=== PATIENT | female | born 1970 | race Caucasian/White ===

== ENCOUNTER 2016-11-03 18:53 | Emergency (ER) | payer OTHER ==
[~2016-11-03] VITALS: Ht 154.9 cm; Wt 69.9 kg
[~2016-11-03 18:53] MED LIST: HYDR10TA2 PO
[2016-11-03 19:44] LABS: BASO # 0.1 x10^3/uL (0.0-0.2); BASO % 1 % (0-3); EOS % 2 % (0-3); HEMATOCRIT 42.4 % (36.0-47.0); HEMOGLOBIN 14.3 g/dL (12.0-15.5); LYMPH # 3.5 x10^3/uL (1.0-4.8); LYMPH % 33 % (24-48); MEAN CORPUSCULAR HEMOGLOBIN 30 pg (25-35); MEAN CORPUSCULAR HGB CONC 34 g/dL (31-37); MEAN CORPUSCULAR VOLUME 89 fL (79-100); MONO % 5 % (0-9); NEUT % 59 % (31-73); PLATELET COUNT 219 x10^3/uL (140-400); RED BLOOD COUNT 4.74 x10^6/uL (3.50-5.40); RED CELL DISTRIBUTION WIDTH 12.8 % (11.5-14.5); WHITE BLOOD COUNT 10.8 x10^3/uL (4.0-11.0)
[2016-11-03] MEDS ORDERED: IV NORMAL SALINE 1000ML BAG 1,000 ML IV ONE (19:45)
[2016-11-03] MEDS ORDERED: ONDANSETRON PF 4 MG/2 ML VIAL. IV ONE (19:45)
--- NOTE | 2016-11-03 19:53 | PHYS DOC ---
Past Medical History Past Medical History: Anxiety, Other Additional Past Medical Histor: "recovering drug and alcohol addict" Past Surgical History: Cholecystectomy, Hysterectomy, Tonsillectomy, Tubal ligation Additional Past Surgical Histo: "bladder lift", left finger Alcohol Use: None Drug Use: None Adult General Chief Complaint Chief Complaint: NAUSEA/VOMITING/DIARRHA HPI HPI 46-year-old female presents with 24-hour history of nausea and vomiting. She also states that her anxiety is very high. She denies any fever chills or sweats. She's not had any melena or hematemesis. She states that no one else is been sick. She denies any suicidal or homicidal ideation. Patient also states she's had a gradual onset of a headache throughout the day today. She thought it was related to her blood pressure but she did not check her blood pressure at home. She states she's reassured to know that her blood pressure was within normal limits during her check-in process here. [] Review of Systems Review of Systems Constitutional: Denies fever or chills [] Eyes: Denies change in visual acuity, redness, or eye pain [] HENT: Denies nasal congestion or sore throat [] Respiratory: Denies cough or shortness of breath [] Cardiovascular: No additional information not addressed in HPI [] GI: Per history of present illness [] : Denies dysuria or hematuria [] Musculoskeletal: Denies back pain or joint pain [] Integument: Denies rash or skin lesions [] Neurologic: Denies headache, focal weakness or sensory changes [] Endocrine: Denies polyuria or polydipsia [] Current Medications Current Medications Current Medications Medications (Trade) Dose Ordered Sig/Sia Start Time Stop Time Status Last Admin Dose Admin Diazepam (Valium) 5 mg 1X ONCE 11/03/16 20:00 11/03/16 20:01 DC 11/03/16 20:06 5 MG Ondansetron HCl (Zofran) 8 mg 1X ONCE 11/03/16 19:45 11/03/16 19:46 DC 11/03/16 20:06 8 MG Sodium Chloride (Iv Sodium Chloride 0.9% 1000ml Bag) 1,000 ml @ 1,000 mls/hr 1X ONCE 11/03/16 19:45 11/03/16 20:44 11/03/16 20:06 1,000 MLS/HR Allergies Allergies Allergies Coded Allergies Type Severity Reaction Last Updated Verified morphine Allergy Intermediate itching 12/08/15 Yes alprazolam Adverse Reaction Intermediate "makes me wong" 12/08/15 Yes Physical Exam Physical Exam Constitutional: Well developed, well nourished, mild distress, non-toxic appearance. [] HENT: Normocephalic, atraumatic, bilateral external ears normal, oropharynx moist, no oral exudates, nose normal. [] Eyes: PERRLA, EOMI, conjunctiva normal, no discharge. [] Neck: Normal range of motion, no tenderness, supple, no stridor. [] Cardiovascular:Heart rate regular rhythm, no murmur [] Lungs & Thorax: Bilateral breath sounds clear to auscultation [] Abdomen: Bowel sounds normal, soft, no tenderness, no masses, no pulsatile masses. [] Skin: Warm, dry, no erythema, no rash. [] Back: No tenderness, no CVA tenderness. [] Extremities: No tenderness, no cyanosis, no clubbing, ROM intact, no edema. [] Neurologic: Alert and oriented X 3, normal motor function, normal sensory function, no focal deficits noted. [] Psychologic: Extremely anxious. [] Current Patient Data Vital Signs Vital Signs Date Time Temp Pulse Resp B/P Pulse Ox O2 Delivery O2 Flow Rate FiO2 11/03/16 19:20 97.8 69 26 147/75 100 Room Air 97.8 Lab Values Laboratory Tests Test 11/03/16 19:25 White Blood Count 10.8x10^3/uL (4.0-11.0) Red Blood Count 4.74x10^6/uL (3.50-5.40) Hemoglobin 14.3g/dL (12.0-15.5) Hematocrit 42.4% (36.0-47.0) Mean Corpuscular Volume 89fL (79-100) Mean Corpuscular Hemoglobin 30pg (25-35) Mean Corpuscular Hemoglobin Concent 34g/dL (31-37) Red Cell Distribution Width 12.8% (11.5-14.5) Platelet Count 219x10^3/uL (140-400) Neutrophils (%) (Auto) 59% (31-73) Lymphocytes (%) (Auto) 33% (24-48) Monocytes (%) (Auto) 5% (0-9) Eosinophils (%) (Auto) 2% (0-3) Basophils (%) (Auto) 1% (0-3) Neutrophils # (Auto) 6.4x10^3uL (1.8-7.7) Lymphocytes # (Auto) 3.5x10^3/uL (1.0-4.8) Monocytes # (Auto) 0.6x10^3/uL (0.0-1.1) Eosinophils # (Auto) 0.3x10^3/uL (0.0-0.7) Basophils # (Auto) 0.1x10^3/uL (0.0-0.2) Sodium Level 140mmol/L (136-145) Potassium Level 3.5mmol/L (3.5-5.1) Chloride Level 102mmol/L (98-107) Carbon Dioxide Level 26mmol/L (21-32) Anion Gap 12 (6-14) Blood Urea Nitrogen 7mg/dL (7-20) Creatinine 0.7mg/dL (0.6-1.0) Estimated GFR (Cockcroft-Gault) 89.3 BUN/Creatinine Ratio 10 (6-20) Glucose Level 126mg/dL (70-99) H Calcium Level 9.3mg/dL (8.5-10.1) Total Bilirubin Pending Aspartate Amino Transferase (AST) Pending Alanine Aminotransferase (ALT) Pending Alkaline Phosphatase Pending Total Protein Pending Albumin Pending Albumin/Globulin Ratio Pending Laboratory Tests 11/03/16 19:25 Laboratory Tests 11/03/16 19:25 EKG EKG [] Radiology/Procedures Radiology/Procedures [] Course & Med Decision Making Course & Med Decision Making Pertinent Labs and Imaging studies reviewed. (See chart for details) [] Dragon Disclaimer Dragon Disclaimer This electronic medical record was generated, in whole or in part, using a voice recognition dictation system. Departure Departure Impression: Primary Impression: Anxiety Additional Impressions: Nausea vomiting and diarrhea Headache Referrals: NO PCP (PCP) Patient Instructions: Anxiety and Panic Attacks, Gastritis, Adult, Tension Headache, Viral Gastroenteritis Additional Instructions: Thank you for allowing us to participate in your care today. Followup with your primary care physician in 3 days if your symptoms do not improve. Return to the emergency department you have any new or concerning findings. This should be evaluated by the primary care physician and any necessary consulting services for continued management within a few days after discharge. Return to emergency room if you have any new or concerning symptoms including but not limited to fever, chills, nausea, vomiting, intractable pain, any new rashes, chest pain, shortness of air, uncontrolled bleeding, difficulty breathing, and/or vision loss. You may have been prescribed medication that can change in your level of thinking and ability to operate machinery. These medications include hydrocodone and Ativan. Also, Benadryl has been known to do this as well. Be sure to check with your pharmacist and ask if the medications you've prescribed can affect your level of consciousness. I recommend not operating heavy machinery or driving while on medication such as these. Scripts Ranitidine Hcl (Zantac)300 Mg Tablet1 Tab PO QHS reflux #90 TAB Ref 3 Prov:NELLA MAO DO 11/03/16 Metoclopramide Hcl (Reglan)10 Mg Tablet1 Tab PO Q8HRS PRN headache and nausea # 30 TAB Prov:NELLA MAO DO 11/03/16 Problem Qualifiers Additional Impressions: Headache Headache type: unspecified Headache chronicity pattern: episodic headache Intractability: not intractable Qualified Code: R51 - Headache NELLA MAO DO Nov 03, 2016 19:53
[2016-11-03 20:00] LABS: CALCIUM 9.3 mg/dL (8.5-10.1); CREATININE 0.7 mg/dL (0.6-1.0); GFR 89.3; POTASSIUM 3.5 mmol/L (3.5-5.1)
[2016-11-03] MEDS ORDERED: DIAZEPAM 10 MG/2 ML DISP.SYRIN. IV ONE (20:00)
[2016-11-03 20:06] LABS: ALBUMIN 3.8 g/dL (3.4-5.0); ALBUMIN/GLOBULIN RATIO 1.2 (1.0-1.7); TOTAL BILIRUBIN 0.3 mg/dL (0.2-1.0); TOTAL PROTEIN 7.1 g/dL (6.4-8.2)
[2016-11-03 20:09] VITALS: BP 131/72
[2016-11-03] MEDS ORDERED: RANI300T3 PO (20:11)
[2016-11-03] MEDS ORDERED: METO10TA81 PO (20:11)
--- NOTE | 2016-11-04 06:42 | EKG ---
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
== END 2016-11-03 20:30 | disposition home or self-care (01) ==
LOC: ER 18:53
DX: F41.9 Anxiety disorder, unspecified (principal); R11.2 Nausea with vomiting, unspecified; R19.7 Diarrhea, unspecified; R51 Headache; Z90.49 Acquired absence of other specified parts of digestive tract; Z90.710 Acquired absence of both cervix and uterus; Z98.51 Tubal ligation status; Z88.5 Allergy status to narcotic agent; Z88.8 Allergy status to other drugs, medicaments and biological substances
CPT/HCPCS: 36415; 80053; 85027; 93005; 96374; 96375; 99285; J2405; J3360; J7030

== ENCOUNTER → 2017-06-01 | Outpatient (CLI) | payer OTHER ==
[~2017-06-01] MED LIST changes: +METO10TA81 PO; +RANI300T3 PO
--- NOTE | 2017-06-01 13:51 | RAD ---
DATE: 06/01/2017 EXAM: DIGITAL DIAGNOSTIC BILATERAL, BREAST LEFT HISTORY: Left nipple inversion COMPARISON: 03/14/2014 03/29/2014 This study was interpreted with the benefit of Computerized Aided Detection (CAD). The breast parenchyma shows scattered fibroglandular densities. Breast parenchyma level B. FINDINGS: There are benign-appearing lymph node type densities projected over the axillary tail regions which are unchanged. No new or enlarging breast densities are seen. Minimal benign type calcification is present. No suspicious microcalcifications have developed. Left breast ultrasound, 06/01/2017: A targeted ultrasound exam of the retroareolar region was performed. Normal heterogeneous fibroglandular shadows are present. No cystic or solid breast mass is seen. No dilated ducts are evident. IMPRESSION: 1. Stable mammograms without evidence of malignancy. 2. The targeted left breast ultrasound exam reveals no abnormality. 3. Clinical surveillance is suggested. Surgical consultation may be advisable in the presence of new nipple changes, despite the negative imaging. BI-RADS CATEGORY: 2 BENIGN FINDING(S) RECOMMENDED FOLLOW-UP: CLIN FOLLOW UP IMAGING CLINICALLY INDICATED PQRS compliance statement: Patient information was entered into a reminder system with a target due date for the next mammogram. Mammography is a sensitive method for finding small breast cancers, but it does not detect them all and is not a substitute for careful clinical examination. A negative mammogram does not negate a clinically suspicious finding and should not result in delay in biopsying a clinically suspicious abnormality. "Our facility is accredited by the [employer] Mammography [employer]."
== END | disposition home or self-care (01) ==
LOC: MAMMO 12:49
PROVIDERS: ATTEND Obstetrics & Gynecology
DX: N64.59 Other signs and symptoms in breast (principal)
CPT/HCPCS: 76641; G0204; 77066

== ENCOUNTER 2018-08-10 18:48 | Emergency (ER) | payer SELFPAY ==
[~2018-08-10] VITALS: Ht 157.5 cm; Wt 69.9 kg
[2018-08-10 19:13] VITALS: BP 165/79
[2018-08-10] MEDS ORDERED: LIDO113G3 TP (19:39)
[2018-08-10] MEDS ORDERED: HYDR-971 PO (19:39)
[2018-08-10] MEDS ORDERED: ACYC800T PO (19:39)
--- NOTE | 2018-08-10 19:39 | PHYS DOC ---
Past Medical History Past Medical History: Anxiety, Other Additional Past Medical Histor: "recovering drug and alcohol addict" Past Surgical History: Cholecystectomy, Hysterectomy, Tonsillectomy, Tubal ligation Additional Past Surgical Histo: "bladder lift", left finger Alcohol Use: None Drug Use: None Adult General Chief Complaint Chief Complaint: VAGINAL PROBLEM HPI HPI 48-year-old female presents to emergency room for evaluation of painful sores in the vagina for 3 days. She denies any fever, body aches or ill feeling. She does not have a history of genital herpes. Also has noticed a tender rash in the middle of her back. She is concerned for genital herpes, has some concerns because her partner of 26 years had multiple affairs. She denies abdominal or chest pain. Review of Systems Review of Systems Constitutional: Denies fever or chills [] Eyes: Denies change in visual acuity, redness, or eye pain [] HENT: Denies nasal congestion or sore throat [] Respiratory: Denies cough or shortness of breath [] Cardiovascular: No additional information not addressed in HPI [] GI: Denies abdominal pain, nausea, vomiting, bloody stools or diarrhea [] Endocrine: Denies polyuria or polydipsia [] All other systems were reviewed and found to be within normal limits, except as documented in this note. Allergies Allergies Allergies Coded Allergies Type Severity Reaction Last Updated Verified morphine Allergy Intermediate itching 12/08/15 Yes alprazolam Adverse Reaction Intermediate "makes me wong" 12/08/15 Yes Physical Exam Physical Exam Constitutional: Well developed, well nourished, no acute distress, non-toxic appearance. [] HENT: Normocephalic, LOWER LIP ON FACE HERPETIC LESION Eyes: PERRLA, EOMI, conjunctiva normal, no discharge. [] Neck: Normal range of motion, no tenderness, supple, no stridor. [] Cardiovascular:Heart rate regular rhythm, no murmur [] Lungs & Thorax: Bilateral breath sounds clear to auscultation [] Abdomen: Bowel sounds normal, soft, no tenderness, no masses, no pulsatile masses. [] Skin: GROUPED VESICLES MID OF BACK CONSISTENT C SHINGLES : CHAPERRONE PRESENT, MULTIPLE ULCERATIONS ON VULVA Neurologic: Alert and oriented X 3, normal motor function, normal sensory function, no focal deficits noted. [] Psychologic: Affect normal, judgement normal, mood normal. [] Current Patient Data Vital Signs Vital Signs Date Time Temp Pulse Resp B/P (MAP) Pulse Ox O2 Delivery O2 Flow Rate FiO2 08/10/18 19:13 98.5 86 20 165/79 (107) 100 Room Air 98.5 EKG EKG [] Radiology/Procedures Radiology/Procedures [] Course & Med Decision Making Course & Med Decision Making Pertinent Labs and Imaging studies reviewed. (See chart for details) [Patient is treated for genital herpes and shingles, recommend gynecology follow -up. She is non-toxic in appearance and stable for discharge home.] Dragon Disclaimer Dragon Disclaimer This electronic medical record was generated, in whole or in part, using a voice recognition dictation system. Departure Departure Impression: Primary Impression: Shingles Additional Impression: Genital herpes Disposition: HOME, SELF-CARE Condition: STABLE Referrals: NO PCP (PCP) Patient Instructions: Genital Herpes, Shingles Scripts Hydrocodone/Apap 5-325 (NORCO 5-325 TABLET) 1 Each Tablet 1 TAB PO PRN Q6HRS PRN for PAIN, #20 TAB 0 Refills Prov: GABRIEL LAZO APRN 08/10/18 Lidocaine (TOPICAINE 5) 113 Gm Gel..gram. 113 GM TP QID PRN for PAIN, #1 EACH Prov: GABRIEL LAZO APRN 08/10/18 Acyclovir (ACYCLOVIR) 800 Mg Tablet 1 TAB PO 5XDAY, #50 TAB Prov: GABRIEL LAZO APRN 08/10/18 Problem Qualifiers GABRIEL LAZO APRN Aug 10, 2018 19:39
== END 2018-08-10 19:45 | disposition home or self-care (01) ==
LOC: ER 18:48
DX: A60.09 Herpesviral infection of other urogenital tract (principal); B02.9 Zoster without complications; N76.6 Ulceration of vulva; F41.9 Anxiety disorder, unspecified; Z90.89 Acquired absence of other organs; Z90.710 Acquired absence of both cervix and uterus; Z90.49 Acquired absence of other specified parts of digestive tract; Z98.51 Tubal ligation status; Z88.5 Allergy status to narcotic agent; Z88.8 Allergy status to other drugs, medicaments and biological substances
CPT/HCPCS: 99283

== ENCOUNTER → 2019-12-27 | Outpatient (CLI) | payer BC ==
[~2019-12-27] MED LIST changes: +ACYC800T PO; +HYDR-3164 PO; +LIDO113G3 TP
--- NOTE | 2019-12-27 18:40 | RAD ---
EXAMINATION: MAMMO HANNY DIAG BILAT History: Inverted nipples bilaterally. Comparison: 03/14/2014 and 06/01/2017 screen mammographic exams. Technique: Bilateral digital diagnostic mammogram views were obtained. CAD was utilized. 3-D tomosynthesis images were acquired. Findings: Breast Tissue Density B : There are scattered areas of fibroglandular density. There are no dominant masses, suspicious microcalcifications, or architectural distortion. Nipples have a similar appearance as on correlation with prior exams considering slight differences in patient positioning. There is no mass or distortion in the interval in the subareolar regions. IMPRESSION: No mammographic evidence of malignancy. Recommend routine screening. BI-RADS category 1: Negative. Clinical management of report nipple inversion is recommended. The images were reviewed with computer aided detection. Patient information is entered into the reminder system with a target due date for the next screening mammogram. Mammography is the most sensitive method for finding small breast cancers, but it does not detect them all and is not a substitute for careful clinical examination. A negative mammogram does not negate a clinically suspicious finding and should not result in delay in biopsying a clinically suspicious abnormality. "Our facility is accredited by the [employer]ammography [employer]." Electronically signed by: Colby Gautam MD (12/27/2019 6:38 PM) [id number]
== END | disposition home or self-care (01) ==
LOC: MAMMO 09:25
PROVIDERS: ATTEND Nurse Practitioner Women's Health
DX: N64.59 Other signs and symptoms in breast (principal)
CPT/HCPCS: 77066; G0279; 77062